=== PATIENT | female | born 1940 | race Caucasian/White ===

== ENCOUNTER 2019-06-03 16:57 | Emergency (ER) | payer OTHER, SELFPAY ==
[2019-06-03 15:46] VITALS: BP 183/79; PULSE 83; RESP 16; TEMP 36.8; O2SAT 99; BMI 24.2
[2019-06-03 15:52] VITALS: BP 196/87; PULSE 85; RESP 18; O2SAT 98
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
[2019-06-03 16:29] VITALS: BP 196/87; PULSE 81; RESP 18; O2SAT 98
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
[2019-06-03 17:21] VITALS: BP 167/75; PULSE 78; RESP 15; TEMP 36.6; O2SAT 97
== END 2019-06-03 17:26 | disposition home or self-care (01) ==
LOC: ER 17:33
PROVIDERS: Emergency Provider Physician Assistant
DX: Z04.1 Encounter for examination and observation following transport accident (principal); V89.2XXA Person injured in unspecified motor-vehicle accident, traffic, initial encounter
CPT/HCPCS: 71046; 72040; 99281